=== PATIENT | female | born 1975 | race African-American/Black ===

== ENCOUNTER 2018-04-22 12:06 | Emergency (ER) | payer MEDICAID ==
[~2018-04-22] VITALS: Ht 172.7 cm; Wt 91.0 kg
[2018-04-22 12:09] VITALS: BP 108/73
== END 2018-04-22 16:58 | disposition left against medical advice (07) ==
LOC: ER 12:06
DX: Z53.21 Procedure and treatment not carried out due to patient leaving prior to being seen by health care provider (principal)
CPT/HCPCS: 93005